=== PATIENT | male | born 1975 | race African-American/Black ===

== ENCOUNTER 2020-10-08 07:55 | Emergency (ER) | payer BC ==
[~2020-10-08] VITALS: Ht 175.3 cm; Wt 90.9 kg
--- NOTE | 2020-10-08 08:41 | RAD ---
XR KNEE _3 VIEWS_LT DATE: 10/08/2020 8:29 AM INDICATION: Pain, injury COMPARISON: None. FINDINGS: Bones: There is no evidence of acute fracture or dislocation. Joints: The joint spaces are normal. Small joint effusion. Miscellaneous: None. IMPRESSION: No acute fracture. Small joint effusion. Electronically signed by: Dipesh Horvath MD (10/08/2020 8:39 AM) [id number]
--- NOTE | 2020-10-08 08:53 | PHYS DOC ---
Past History Past Medical History: Hypertension Past Surgical History: Other Additional Past Surgical Histo: hernia repair Alcohol Use: Occasionally General Adult EDM: Chief Complaint: KNEE INJURY HPI: HPI: Patient is a 45-year-old male coming in for pain and swelling to his left knee. Patient was bowling and says he was struck in the anterior lateral knee with a bowling ball by another ball. Able to ambulate with pain. Denies any paresthesias or numbness distal to the injury. Has no prior injuries to that knee or surgeries. Otherwise been well. No coagulopathies Review of Systems: Review of Systems: All other systems within normal limits except for as noted in the HPI Allergies: Allergies: Allergies Coded Allergies Type Severity Reaction Last Updated Verified No Known Drug Allergies 10/08/20 No Physical Exam: PE: Constitutional: Well developed, well nourished, no acute distress, non-toxic appearance. [] HENT: Normocephalic, atraumatic, bilateral external ears normal, nose normal. [] Eyes: PERRLA, conjunctiva normal, no discharge. [] Neck: No rigidity, supple, no stridor. [] Cardiovascular: Regular rate and rhythm, brisk cap refill [] Lungs & Thorax: Non labored symmetric respirations, no tachypnea or respiratory distress [] Abdomen: Soft, nondistended. Skin: Warm, dry, no erythema, no rash. [] Back: Unremarkable Extremities: No deformities, range of motion grossly intact, no lower extremity edema. Left knee exam. Smallmoderate joint effusion, no deformities. No varus, valgus, anterior, posterior laxity. [] Neurologic: Alert and oriented X 3, no focal deficits noted. [] Psychologic: Affect normal, judgement normal, mood normal. [] Current Patient Data: Vital Signs: Vital Signs Date Time Temp Pulse Resp B/P (MAP) Pulse Ox O2 Delivery O2 Flow Rate FiO2 10/08/20 08:10 97.9 89 18 174/100 (124) 100 Room Air EKG: EKG: [] Radiology/Procedures: Radiology/Procedures: XR KNEE _3 VIEWS_LT DATE: 10/08/2020 8:29 AM INDICATION: Pain, injury COMPARISON: None. FINDINGS: Bones: There is no evidence of acute fracture or dislocation. Joints: The joint spaces are normal. Small joint effusion. Miscellaneous: None. IMPRESSION: No acute fracture. Small joint effusion.[] Heart Score: C/O Chest Pain: No Risk Factors: Risk Factors: DM, Current or recent (<one month) smoker, HTN, HLP, family history of CAD, obesity. Risk Scores: Score 0 - 3: 2.5% MACE over next 6 weeks - Discharge Home Score 4 - 6: 20.3% MACE over next 6 weeks - Admit for Clinical Observation Score 7 - 10: 72.7% MACE over next 6 weeks - Early Invasive Strategies Course & Med Decision Making: Course & Med Decision Making Pertinent Labs and Imaging studies reviewed. (See chart for details) [] Dragon Disclaimer: Dragon Disclaimer: This electronic medical record was generated, in whole or in part, using a voice recognition dictation system. Departure Departure: Impression: Primary Impression: Contusion of knee, left Disposition: 01 HOME / SELF CARE / HOMELESS Condition: STABLE Referrals: [facility] (PCP) [facility] Patient Instructions: Knee Wraps (Elastic Bandage) and MUKUND CALDERON MD October 08, 2020 08:53
[2020-10-08 09:03] VITALS: BP 181/102
== END 2020-10-08 09:00 | disposition home or self-care (01) ==
LOC: ER 07:55
DX: S80.02XA Contusion of left knee, initial encounter (principal); I10 Essential (primary) hypertension; W21.09XA Struck by other hit or thrown ball, initial encounter; Y93.89 Activity, other specified; Y92.89 Other specified places as the place of occurrence of the external cause; Y99.8 Other external cause status
CPT/HCPCS: 73562; 99284